=== PATIENT | female | born 1970 | race Caucasian/White ===

== ENCOUNTER 2017-02-17 16:42 | Emergency (ER) | payer BC ==
--- NOTE | 2017-02-17 17:01 | EDM.PDOC ---
ED HPI GENERAL MEDICAL PROBLEM - General Chief Complaint: Neurological Problem Stated Complaint: Dizziness Time Seen by Provider: 02/17/17 17:00 Source of Information: Reports: Patient, RN, RN Notes Reviewed History Limitations: Reports: No Limitations - History of Present Illness INITIAL COMMENTS - FREE TEXT/NARRATIVE: Patient presents to the emergency room at [facility] complaining of an acute onset of dizziness. The patient states that while she was at work sitting at her desk, she "did not feel right." The patient states that she then got up to go use the restroom. The patient states after using the restroom her dizziness got significantly worse. The patient states that she had some ataxia with ambulating, she did not feel safe as the room was spinning. The patient denies any cigarette smoking. The patient denies any alcohol use. No illegal drug use. The patient states she became significantly nauseated upon arrival to the emergency room. The patient has not vomited. The patient denies any visual field disturbances. The patient states she now has a headache that is more toward the back of her head. The patient states that her dizziness is worse with movement of her head versus movement of just the eyes. The patient denies any previous neurological problems. The patient does take 2 separate blood pressure medications every day in the morning. The patient states that she did take her blood pressure medication today. Otherwise no other problems. Onset: Today, Sudden Onset Date: 02/17/17 Onset Time: 16:00 Duration: Constant, Getting Worse - Related Data Allergies Allergy/AdvReac Type Severity Reaction Status Date / Time Sulfa (Sulfonamide AdvReac Vomiting Verified 04/27/15 08:17 Antibiotics) Home Meds: Home Meds Amoxicillin/Clavulanate K [Augmentin 875 MG/125 MG] 1 tab PO Q12HR 04/26/15 [ History] Hydrocodone/Acetaminophen [Hydrocodon-Acetaminophen 5-325] 1 - 2 tab PO Q6H [History] Levothyroxine Sodium [Synthroid] 137 mcg PO DAILY 04/26/15 [History] Multivitamin [Multivitamins] 1 cap PO DAILY 04/26/15 [History] Warfarin [Coumadin] 1 tab PO DAILY 04/26/15 [History] predniSONE [Prednisone] 20 mg PO DAILY 04/26/15 [History] Metoprolol Tartrate 25 mg PO BID 05/06/15 [History] Past Medical History Genitourinary History: Reports: Other (See Below) Other Genitourinary History: ablation on uterus Other Hematologic History: Protein S deficiency - Past Surgical History Female Surgical History: Reports: Section, Tubal Ligation, Other ( See Below) Social & Family History - Tobacco Use Smoking Status *Q: Never Smoker - Recreational Drug Use Recreational Drug Use: No ED ROS GENERAL - Review of Systems Review Of Systems: See Below Constitutional: Reports: Weakness. Denies: Fever, Chills HEENT: Denies: Vertigo, Vision Change Respiratory: Denies: Shortness of Breath, Cough Cardiovascular: Reports: Lightheadedness. Denies: Chest Pain, Palpitations GI/Abdominal: Denies: Abdominal Pain, Nausea, Vomiting Skin: Reports: No Symptoms Neurological: Reports: Dizziness, Headache, Difficulty Walking, Other (feels weakness of both upper extremities). Denies: Numbness, Paresthesia, Pre- Existing Deficit, Tingling ED EXAM, DIZZINESS - Physical Exam Exam: See Below Exam Limited By: No Limitations General Appearance: Alert, No Apparent Distress Eye Exam: Bilateral Eye: EOMI, Normal Inspection, PERRL Ears: Normal External Exam, Normal Canal, Normal TMs Head Exam: Atraumatic, Normocephalic Neck: Supple Respiratory/Chest: No Respiratory Distress, Lungs Clear, Normal Breath Sounds Cardiovascular: Normal Peripheral Pulses, Regular Rate, Rhythm GI/Abdominal: Normal Bowel Sounds, Soft, Non-Tender Neurological: Alert, No Motor/Sensory Deficits, Oriented x 3 Skin Exam: Warm, Dry, Intact, Normal Color, No Rash Course - Orders/Labs/Meds Orders: Active Orders 24 hr Category Date Time Status Head wo Cont [CT] Stat Exams 02/17/17 17:19 Taken UA W/MICROSCOPIC [URIN] Stat Lab 02/17/17 17:18 Uncollected Sodium Chloride 0.9% [Saline Flush] Med 02/17/17 17:22 Active 10 ml FLUSH ASDIRECTED PRN Peripheral IV Insertion Adult [OM.PC] Routine Oth 02/17/17 17:22 Ordered Medication Orders Sodium Chloride (Saline Flush) 10 ml FLUSH ASDIRECTED PRN PRN Reason: Keep Vein Open Labs: Laboratory Tests 02/17/17 02/17/17 02/17/17 Range/Units 17:25 17:25 17:25 WBC 11.9 H (4.0-10.0) x10^3/uL RBC 4.76 (4.00-5.50) x10^6/uL Hgb 11.5 L D (12.0-16.0) g/dL Hct 36.4 (33.0-47.0) % MCV 76.5 L D (78.0-93.0) fL MCH 24.2 L (26.0-32.0) pg MCHC 31.6 L (32.0-36.0) g/dL RDW Coeff of Brandan 16.4 H (10.0-15.0) % Plt Count 325 (130-400) x10^3/uL Neut % (Auto) 67.5 (50.0-80.0) % Lymph % (Auto) 18.4 L (25.0-50.0) % [place] % (Auto) 10.1 (2.0-11.0) % Eos % (Auto) 3.5 (0.0-4.0) % Baso % (Auto) 0.5 (0.2-1.2) % PT 41.8 H D (9.8-11.8) SEC INR 4.0 H (2.0-3.5) Sodium 141 (136-145) mmol/L Potassium 3.6 (3.5-5.1) mmol/L Chloride 100 (98-107) mmol/L Carbon Dioxide 30 (21-32) mmol/L BUN 12 (7-18) mg/dL Creatinine 1.1 H (0.55-1.02) mg/dL Est Cr Clr Drug Dosing TNP Estimated GFR (MDRD) 53 Glucose 115 H (74-106) mg/dL Calcium 8.5 (8.5-10.1) mg/dL TSH, Ultra Sensitive 5.433 H (0.358-3.74) uIU/mL Meds: Medications Generic Name Dose Route Start Last Admin Trade Name Freq PRN Reason Stop Dose Admin Sodium Chloride 10 ml 02/17/17 17:22 Saline Flush FLUSH ASDIRECTED PRN Keep Vein Open Discontinued Medications Generic Name Dose Route Start Last Admin Trade Name Freq PRN Reason Stop Dose Admin Sodium Chloride 1,000 mls @ 999 mls/hr 02/17/17 17:23 02/17/17 17:40 Normal Saline IV 02/17/17 18:23 999 mls/hr ONETIME ONE Administration Lorazepam 1 packet 02/17/17 18:37 Take Home: Lorazepam 0.5 Mg, 2 Tab Pack PO 02/17/17 18:38 ONETIME ONE Meclizine HCl 25 mg 02/17/17 18:35 Antivert PO 02/17/17 18:36 ONETIME ONE Ondansetron HCl 4 mg 02/17/17 17:23 02/17/17 17:41 Zofran IVPUSH 02/17/17 17:24 4 mg ONETIME ONE Administration - Radiology Interpretation Free Text/Narrative:: CT Head: Negative exam - see scanned report in EMR CT Results Date: 02/17/17 CT Results Time: 18:07 Departure - Departure Time of Disposition: 18:40 Disposition: Home, Self-Care 01 Condition: Good Clinical Impression: Vertigo - Discharge Information Instructions: Dehydration, Adult, [id number], Vertigo Referrals: Gabriela Aguirre DO [Primary Care Provider] - Forms: ED Department Discharge Additional Instructions: 1. Stay well hydrated and rest 2. Take medications as needed, they may make you drowsy 3. See Dr. Aguirre next week for a follow up as your symptoms warrant 4. Call with any questions or concerns 5. May use over the counter medications to help with dizziness - Problem List Review Problem List Initiated/Reviewed/Updated: Yes - My Orders Last 24 Hours: My Active Orders 02/17/17 17:18 UA W/MICROSCOPIC [URIN] Stat 02/17/17 17:19 Head wo Cont [CT] Stat 02/17/17 17:22 Sodium Chloride 0.9% [Saline Flush] 10 ml FLUSH ASDIRECTED PRN Peripheral IV Insertion Adult [OM.PC] Routine - Assessment/Plan Last 24 Hours: My Active Orders 02/17/17 17:18 UA W/MICROSCOPIC [URIN] Stat 02/17/17 17:19 Head wo Cont [CT] Stat 02/17/17 17:22 Sodium Chloride 0.9% [Saline Flush] 10 ml FLUSH ASDIRECTED PRN Peripheral IV Insertion Adult [OM.PC] Routine
[2017-02-17] MEDS ORDERED: Sodium Chloride 0.9% 10 ML Syringe FLUSH PRN (17:22)
[2017-02-17] MEDS ORDERED: Sodium Chloride 0.9% 1,000 ML IV ONE (17:23)
[2017-02-17] MEDS ORDERED: Ondansetron 4 MG/2 ML SDV IVPUSH ONE (17:23)
[2017-02-17 18:03] LABS: CHLORIDE,CL 100 mmol/L (98-107); SODIUM,NA 141 mmol/L (136-145)
[2017-02-17] MEDS ORDERED: Meclizine 25 MG Tab PO ONE (18:35)
[2017-02-17] MEDS ORDERED: Take Home: LORazepam 0.5 MG Tab, 2 Tab Pack PO ONE (18:37)
[2017-02-17 19:31] VITALS: BP 174/81
== END 2017-02-17 19:34 | disposition home or self-care (01) ==
LOC: VM.ED 16:42
DX: R42 Dizziness and giddiness (principal); Z79.899 Other long term (current) drug therapy; Z79.01 Long term (current) use of anticoagulants; Z88.2 Allergy status to sulfonamides
CPT/HCPCS: 36415; 70450; 80048; 81001; 84443; 85025; 85610; 96365; 96366; 96375; 99284; A9270; J2405; J7030

== ENCOUNTER 2021-02-19 06:56 | Day surgery (SDC) | payer BC, OTHER ==
[~2021-02-19 06:56] MED LIST: Lactated Ringers 1,000 ML IV SCH; Sodium Chloride 0.9% 10 ML Syringe FLUSH PRN
[2021-02-19] MEDS ORDERED: Lactated Ringers 1,000 ML IV SCH (07:00)
[2021-02-19] MEDS ORDERED: Propofol 200 MG/20 ML SDV ONE ×2 (07:52→09:55)
[2021-02-19] MEDS ORDERED: fentaNYL 100 MCG/2 ML SDV ONE (07:53)
--- NOTE | 2021-02-19 10:36 | PCM.PRGIL ---
Lower GI Endoscopy Procedure - Diagnosis (1) Encounter for screening colonoscopy Current Visit: Yes Status: Acute SNOMED Code(s): 954230506, [id number] Procedure:: Reports: Colonoscopy Informed Consent Obtained?: Yes Indications:: Reports: Screening Rectodigital Exam:: Reports: Normal Exam Sedation:: Reports: Anesthesia (MAC) Depth Reached (Location):: Reports: Terminal Ileum Landmarks:: Reports: Cecum, Ileocecal Valve, Ileac Folds - Findings Rectal:: Reports: Normal Polyps (location):: Reports: None - Follow-up Follow-Up:: Repeat screening colonoscopy in 10 years.
[2021-02-19 10:43] VITALS: BP 153/77; PULSE 82
== END 2021-02-19 11:03 | disposition home or self-care (01) ==
LOC: VM.SDS 06:56
PROVIDERS: ATTEND Student in an Organized Health Care Education/Training Program
DX: Z12.11 Encounter for screening for malignant neoplasm of colon (principal); R05.9 Cough, unspecified; D68.59 Other primary thrombophilia; I10 Essential (primary) hypertension; J44.9 Chronic obstructive pulmonary disease, unspecified; E03.9 Hypothyroidism, unspecified; G43.909 Migraine, unspecified, not intractable, without status migrainosus; E66.01 Morbid (severe) obesity due to excess calories; Z79.899 Other long term (current) drug therapy; Z79.890 Hormone replacement therapy; Z88.2 Allergy status to sulfonamides; Z98.890 Other specified postprocedural states; Z68.42 Body mass index [BMI] 45.0-49.9, adult
CPT/HCPCS: 00812; 36415; 45378; 85610; J2704; J3010; J7120

== ENCOUNTER 2021-03-04 18:24 | Emergency (ER) | payer OTHER ==
[2021-03-04] MEDS ORDERED: Phenazopyridine 95 MG Tab PO STA (18:56)
[2021-03-04 19:15] VITALS: BP 146/84; PULSE 83
[2021-03-04] MEDS ORDERED: Cephalexin 500 MG Cap PO ONE (19:25)
[2021-03-04] MEDS ORDERED: Take Home: Cephalexin 500 MG Cap, 4 Cap Pack PO ONE (19:25)
[2021-03-04 19:42] LABS: CHLORIDE,CL 99 mmol/L (98-107); SODIUM,NA 139 mmol/L (136-145)
[2021-03-04 19:43] LABS: ANION GAP 11.7 mmol/L (5-15)
[2021-03-04 19:48] LABS: PTT,PARTIAL THROMBOPLSTIN TIME 35.8 SEC (25.6-32.8)
== END 2021-03-04 19:46 | disposition home or self-care (01) ==
LOC: VM.ED 18:24
DX: N30.01 Acute cystitis with hematuria (principal); I10 Essential (primary) hypertension; Z88.2 Allergy status to sulfonamides; Z79.899 Other long term (current) drug therapy; Z79.01 Long term (current) use of anticoagulants
CPT/HCPCS: 36415; 80048; 81001; 81025; 85025; 85610; 85730; 87086; 87088; 87186; 99283; A9270-GY

== ENCOUNTER 2022-10-16 14:40 | Emergency (ER) | payer BC ==
[2022-10-16] MEDS ORDERED: Lidocaine 1% 10 ML MDV INJECT ONE (14:46)
== END 2022-10-16 15:22 | disposition home or self-care (01) ==
LOC: VM.ED 14:40
DX: S61.211A Laceration without foreign body of left index finger without damage to nail, initial encounter (principal); I10 Essential (primary) hypertension; Z88.1 Allergy status to other antibiotic agents; Z79.899 Other long term (current) drug therapy; W26.0XXA Contact with knife, initial encounter
CPT/HCPCS: 12001; 99282; J3490